=== PATIENT | female | born 1955 | race Caucasian/White ===

== ENCOUNTER 2018-08-24 11:15 | Emergency (ER) | payer OTHER ==
[~2018-08-24] VITALS: Ht 157.5 cm; Wt 68.9 kg
[2018-08-24 12:27] LABS: CLARITY,URINE VERY CLOUDY; COLOR,URINE BROWN; GLUCOSE, URINE (UA) NEGATIVE (NEGATIVE); KETONES,URINE 3+ (NEGATIVE); LEUKOCYTE ESTERASE ,URINE 2+ (NEGATIVE); NITRITE,URINE POSITIVE (NEGATIVE); PH,URINE 5 (5-9); PROTEIN,URINE 3+ (NEGATIVE); UROBILINOGEN,URINE 1 MG/DL (NORMAL)
[2018-08-24] MEDS ORDERED: ONDANSETRON 4 MG/2 ML (SDV) Z0FRAN IVP ONE (12:30)
[2018-08-24] MEDS ORDERED: KETOROLAC 30 MG/ML VIAL IVP ONE (12:30)
--- NOTE | 2018-08-24 12:32 | ED GU-Female ---
General Chief Complaint: Abdominal/GI Problems Stated Complaint: LOWER BACK PAIN;BLOOD IN URINE Nursing Triage Note: Pt reports being recently tx for UTI. Pt states she started having R flank pain this morning and blood in urine. pt has hx kidney stones. Nursing Sepsis Screen: No Definite Risk Source: patient, spouse Exam Limitations: no limitations History of Present Illness Date Seen by Provider: Aug 24, 2018 Time Seen by Provider: 12:19 Initial Comments The patient presents to ER by private conveyance with her significant other and chief complaint that 3 weeks ago she started noticing some blood in her urine and went to her primary care doctor. She was having a little bit of right flank pain and so he ordered ciprofloxacin which she completed. Her symptoms improved significantly but then they came back about 5 days ago so he ordered another antibiotic that started with the letter M, presumably Macrobid. She's been taking it with no relief of her symptoms. She has a history of kidney stones. She still having blood in her urine. No clots or difficulty urinating. The pain starts in her right back and radiates down her right flank into her right groin. No history of trauma bruising or rash on her side. She's had no fevers chills palpitations. Allergies and Home Medications Allergies Coded Allergies: No Known Drug Allergies (Unverified , 08/24/18) Patient Home Medication List Home Medication List Reviewed: Yes Review of Systems Review of Systems Constitutional: No chills, No diaphoresis EENTM: No hearing loss, No ear pain Respiratory: No cough, No short of breath Cardiovascular: No chest pain, No edema Gastrointestinal: see HPI, abdominal pain; No constipation, No diarrhea, No nausea Genitourinary: denies dysuria; hematuria Musculoskeletal: see HPI, back pain; No joint pain Past Aeypnqo-Vljokh-Jewtqh Hx Patient Social History Alcohol Use: Denies Use Recreational Drug Use: No Smoking Status: Never a Smoker Recent Foreign Travel: No Contact w/Someone Who Travel: No Recent Infectious Disease Expo: No Physical Exam Vital Signs Vital Signs - First Documented 08/24/18 11:40 Temp 98.1 Pulse 65 Resp 18 B/P (MAP) 146/73 (97) Pulse Ox 96 O2 Delivery Room Air Capillary Refill : Less Than 3 Seconds Height, Weight, BMI Height: 5'2.00" Weight: 152lbs. oz. [id number]; BMI Method:Stated General Appearance: WD/WN, moderate distress HEENT: PERRL/EOMI, pharynx normal Neck: full range of motion, normal inspection Cardiovascular: normal peripheral pulses, regular rate, rhythm, no edema Respiratory: no respiratory distress, no accessory muscle use Gastrointestinal: non tender, soft Back: normal inspection, CVA tenderness (R); No CVA tenderness (L) Extremities: normal inspection, normal capillary refill Neurologic/Psychiatric: alert, normal mood/affect Skin: normal color, warm/dry Progress/Results/Core Measures Suspected Sepsis Recent Fever Within 48 Hours: No Infection Criteria Present: Suspected New Infection New/Unexplained Altered Menta: No Sepsis Screen: No Definite Risk SIRS Temperature:98.1 Pulse: 65 Respiratory Rate: 18 Blood Pressure 146 /73 Mean: 97 Results/Orders Lab Results Laboratory Tests Test 08/24/18 12:17 Range/Units Urine Color BROWN H Urine Clarity VERY CLOUDY H Urine pH 5 5-9 Urine Specific [place] 1.025 H 1.016-1.022 Urine Protein 3+ H NEGATIVE Urine Glucose (UA) NEGATIVE NEGATIVE Urine Ketones 3+ H NEGATIVE Urine Nitrite POSITIVE H NEGATIVE Urine Bilirubin 1+ H NEGATIVE Urine Urobilinogen 1 NORMAL MG/DL Urine Leukocyte Esterase 2+ H NEGATIVE Urine RBC (Auto) 5+ H NEGATIVE Urine RBC TNTC H /HPF Urine WBC 5-10 H /HPF Urine Squamous Epithelial Cells 5-10 /HPF Urine Crystals PRESENT H /LPF Urine Amorphous Sediment MOD CATHY URATES H /LPF Urine Bacteria MODERATE H /HPF Urine Casts NONE /LPF Urine Mucus NEGATIVE /LPF Urine Culture Indicated YES My Orders Orders - PRINCE SARHA Ua Culture If Indicated (08/24/18 11:39) Ketorolac Injection (Toradol Injection) (08/24/18 12:30) Ondansetron Injection (Zofran Injectio (08/24/18 12:30) Ct Abd/Pelvis Wo(Kidney Stone) (08/24/18 12:25) Abdomen/Kub 1view (08/24/18 12:25) Urine Culture (08/24/18 12:17) Ceftriaxone For Iv Use (Rocephin For I (08/24/18 13:00) Medications Given in ED Current Medications Medications Dose Ordered Sig/Josué Route Start Time Stop Time Status Last Admin Dose Admin Ketorolac Tromethamine 30 mg ONCE ONCE IVP 12/18/18 12:30 08/24/18 12:31 DC 08/24/18 12:56 30 MG Ondansetron HCl 4 mg ONCE ONCE IVP 08/24/18 12:30 08/24/18 12:31 DC 08/24/18 12:57 4 MG Vital Signs/I&O 08/24/18 11:40 Temp 98.1 Pulse 65 Resp 18 B/P (MAP) 146/73 (97) Pulse Ox 96 O2 Delivery Room Air Capillary Refill : Less Than 3 Seconds Blood Pressure Mean: 97 Progress Note : Time: 12:31 Progress Note Suspect kidney stone versus other source of hematuria. We'll start with a noncontrasted CT of the abdomen and pelvis and some Toradol, Zofran for symptoms. Diagnostic Imaging Diagonstic Imaging: CT (kidney stone study noncontrasted) Plain Films/CT/US/NM/MRI: abdomen, pelvis Comments 5-6 mm ureteral calculus noted in the proximal right ureter. Reviewed: Reviewed by Me Diagonstic Imaging: Xray Plain Films/CT/US/NM/MRI: abdomen (1v KUB) Comments 4-5 mm right-sided proximal ureteral stone noted. Reviewed: Reviewed by Me Departure Impression Primary Impression: Ureteral calculus, right Disposition: 01 HOME, SELF-CARE Condition: Stable Departure-Patient Inst. Decision time for Depature: 13:28 Referrals: NO,LOCAL PHYSICIAN (PCP) Primary Care Physician DELMY FISHER MD Patient Instructions: Kidney Stones (DC) Add. Discharge Instructions: Drink lots of fluids. Caffeine is encouraged. Motrin 800 mg every 8 hours in addition to the hydrocodone one to 2 tablets every 6 hours as needed to control your pain. Hydrocodone will cause constipation as well as drowsiness so be careful on long road trips or operating heavy machinery. Do not mix with alcohol. Take the Flomax 1 tablet every night until the kidney stone passes. If you have nausea take one tablet of Zofran every [address] under the tongue and allowed to absorb your mouth. Take the Keflex one capsule twice a day for the next week to prevent infection. Discontinue the Macrobid antibiotic prescribed by your primary care provider. Strain your urine every time to see if you catch the stone. Sometimes the stomal breakup into a fine sand and you will not catch in the strainer. Pain and blood in the urine should stop within 1-2 days after the passage of the stone. Call Dr. Fisher, urology at his clinic and request an appointment. If you start to have fever, intractable pain or nausea and vomiting then you may return to the ER. All discharge instructions reviewed with patient and/or family. Voiced understanding. Scripts Tamsulosin HCl (Flomax) 0.4 Mg Cap 0.4 MG PO HS for 7 Days, #7 CAP 0 Refills Prov: PRINCE SARAH 08/24/18 Ondansetron (Ondansetron Odt) 4 Mg Tab.rapdis 4 MG PO Q6H PRN for NAUSEA/VOMITING, #8 TAB 0 Refills Prov: PRINCE SARAH 08/24/18 Hydrocodone Bit/Acetaminophen (Hydrocodone/Acetaminophen 5/325mg Tablet) 1 Tab Tab 1-2 EACH PO Q6H for PAIN-MODERATE MDD 10, #25 TAB 0 Refills Prov: PRINCE SARAH 08/24/18 Cephalexin (Keflex) 500 Mg Capsule 500 MG PO BID for 7 Days, #14 CAP 0 Refills Prov: PRINCE SARAH 08/24/18 Work/School Note: Work Release Form Date Seen in the Emergency Department: Aug 24, 2018 Return to Work: Aug 27, 2018 Restrictions: No Restrictions Copy Copies To 1: DELMY FISHER MD, TITUS J Aug 24, 2018 12:32
[2018-08-24 12:51] LABS: AMORPHOUS SEDIMENT,UR MOD AMOR URATES /LPF; BACTERIA,URINE MODERATE /HPF; BILIRUBIN,URINE 1+ (NEGATIVE); RBC,URINE TNTC /HPF
[2018-08-24] MEDS ORDERED: cefTRIAXone FOR IV USE 1,000 MG in NS (IVPB) 50 ML IV ONE (13:00)
--- NOTE | 2018-08-24 13:26 | Diagnostic Imaging Report ---
INDICATION: Pain. FINDINGS: Pelvic phleboliths on the left are noted. There is a calcification projecting over the right flank at the level of the distal tip of the right third lumbar transverse process. This could be renal pelvic or proximal ureteral, correlate with symptoms. There is at least mild constipation with an elevated fecal load, limiting sensitivity for detecting stone disease. IMPRESSION: Right flank calcification may be renal pelvic, calyceal, or ureteral. It is about 5 mm. Constipation noted. Dictated by: Dictated on workstation # [id number]
--- NOTE | 2018-08-24 13:27 | Diagnostic Imaging Report ---
PROCEDURE: CT urinary tract, rule out kidney stone. TECHNIQUE: Multiple contiguous axial images were obtained through the abdomen and pelvis without the use of intravenous contrast. INDICATION: Right-sided abdominal pain. COMPARISON: None. FINDINGS: Included portions of the lung bases are clear. CT ABDOMEN: 6 mm calculus is identified at the right UPJ. As a result, there is [id number] proximal hydronephrosis. Multiple additional bilateral nonobstructive renal calculi are seen. Hypodense cyst is also noted on the left. No ureteral calculus seen on the left. Additionally, there is no hydroureteronephrosis or other evidence of obstruction on the left. The spleen, adrenal glands, pancreas, and liver have an unremarkable noncontrast CT appearance. There is no loculated fluid collection, free fluid, nor free air within the abdomen. No abnormal mesenteric or retroperitoneal adenopathy is identified. Small bowel loops are nondistended. Normal appendix cannot be adequately identified, but there is no pericecal inflammation. Bony structures show no acute abnormalities. CT PELVIS: Urinary bladder is nondistended and unopacified. There is no loculated fluid collection, free fluid, or free air within the pelvis. No abnormal lymph nodes are identified. Bony structures show no acute abnormalities. IMPRESSION: 1. 6 mm calculus at the right UPJ resulting in [id number] proximal hydronephrosis. 2. Multiple additional bilateral nonobstructive renal calculi. Dictated by: Dictated on workstation # [id number]
[2018-08-24] MEDS ORDERED: TAMS0.4C98 PO (13:39)
[2018-08-24] MEDS ORDERED: ONDA4TAB11 PO (13:39)
[2018-08-24] MEDS ORDERED: CEPH-507 PO (13:39)
[2018-08-24] MEDS ORDERED: ACHD5005 PO (13:39)
[2018-08-24 13:46] VITALS: BP 146/73
== END 2018-08-24 13:57 | disposition home or self-care (01) ==
LOC: ER 11:15
DX: N13.2 Hydronephrosis with renal and ureteral calculous obstruction (principal); Z87.442 Personal history of urinary calculi
CPT/HCPCS: 74018; 74176; 81000; 87088